=== PATIENT | male | born 1995 | race African-American/Black ===

== ENCOUNTER 2018-07-20 16:20 | Emergency (ER) | payer OTHER ==
[~2018-07-20] VITALS: Ht 180.3 cm; Wt 90.7 kg
[~2018-07-20 16:20] MED LIST: albuterol inh
[2018-07-20 16:40] VITALS: BP 152/81
[2018-07-20] MEDS ORDERED: HYDROcodone/APAP 5/325MG 1 TAB TABLET PO ONE ×2 (17:15→20:15)
--- NOTE | 2018-07-20 18:04 | RAD ---
HAND LEFT 3V History: welding accident/ foreign body in distal phalanx of the third digit Comparison: None. Findings: 3 views of the left hand are submitted. There is a curvilinear foreign body in the distal third phalanx in the soft tissues in the volar aspect, does not course into the bone. Impression: 1. There is a soft tissue foreign body in the distal third phalanx. Electronically signed by: Brain Briones MD (07/20/2018 6:00 PM) [facility]
[2018-07-20] MEDS ORDERED: LIDOCAINE WITH 8.4% SOD BICARB 3 ML DISP.SYRIN. INJ ONE (18:45)
[2018-07-20] MEDS ORDERED: IBUP-1060 PO (20:02)
[2018-07-20] MEDS ORDERED: CEPH-264 PO (20:02)
[2018-07-20] MEDS ORDERED: SULF1TAB24 PO (20:02)
--- NOTE | 2018-07-20 20:03 | PHYS DOC ---
Past Medical History Past Medical History: Asthma, Bronchitis Past Surgical History: Other Additional Past Surgical Histo: L knee sx, L ankle Alcohol Use: None Drug Use: Marijuana Social History Narrative: pt denies Adult General Chief Complaint Chief Complaint: FOREIGN BODY HPI HPI Patient is a 23 year old male who [facility] with [facility] and was working at his job as a spot welder line. A welding wire got stuck into his left third distal finger. Patient states his last tetanus shot was in 2016. Patient states his only history is asthma and he has no known drug allergies. Review of Systems Review of Systems Constitutional: Denies fever or chills [] Eyes: Denies change in visual acuity, redness, or eye pain [] HENT: Denies nasal congestion or sore throat [] Respiratory: Denies cough or shortness of breath [] Cardiovascular: No additional information not addressed in HPI [] GI: Denies abdominal pain, nausea, vomiting, bloody stools or diarrhea [] : Denies dysuria or hematuria [] Musculoskeletal: Foreign body in left third distal finger. Denies back pain or joint pain [] Integument: Denies rash or skin lesions [] Neurologic: Denies headache, focal weakness or sensory changes [] Endocrine: Denies polyuria or polydipsia [] All other systems were reviewed and found to be within normal limits, except as documented in this note. Current Medications Current Medications Current Medications Medications (Trade) Dose Ordered Sig/Ryan Start Time Stop Time Status Last Admin Dose Admin Acetaminophen/ Hydrocodone Bitart (Lortab 5/325) 1 tab 1X ONCE 07/20/18 20:15 07/20/18 20:16 DC 07/20/18 20:15 1 TAB Lidocaine/Sodium Bicarbonate (Buffered Lidocaine 1%) 6 ml 1X ONCE 07/20/18 18:45 07/20/18 18:46 DC 07/20/18 19:01 6 ML Allergies Allergies Allergies Coded Allergies Type Severity Reaction Last Updated Verified No Known Drug Allergies 05/15/14 No Physical Exam Physical Exam Constitutional: Well developed, well nourished, no acute distress, non-toxic appearance. [] HENT: Normocephalic, atraumatic, bilateral external ears normal, oropharynx moist, no oral exudates, nose normal. [] Eyes: PERRLA, EOMI, conjunctiva normal, no discharge. [] Neck: Normal range of motion, no tenderness, supple, no stridor. [] Cardiovascular:Heart rate regular rhythm, no murmur [] Lungs & Thorax: Bilateral breath sounds clear to auscultation [] Abdomen: Bowel sounds normal, soft, no tenderness, no masses, no pulsatile masses. [] Skin: Warm, dry, no erythema, no rash. [] Back: No tenderness, no CVA tenderness. [] Extremities: One centimeter foreign body metal wire stuck in left third distal finger. No tenderness, no cyanosis, no clubbing, ROM intact, no edema. [] Neurologic: Alert and oriented X 3, normal motor function, normal sensory function, no focal deficits noted. [] Psychologic: Affect normal, judgement normal, mood normal. [] Current Patient Data Vital Signs Vital Signs Date Time Temp Pulse Resp B/P (MAP) Pulse Ox O2 Delivery O2 Flow Rate FiO2 07/20/18 20:15 18 99 Room Air 07/20/18 16:40 98.2 82 152/81 (104) 98.2 EKG EKG [] Radiology/Procedures Radiology/Procedures [] Impressions: [facility] [address] [place] [address] IMAGING REPORT Signed PATIENT: BRIGHT MARTI ACCOUNT: [id number] : 1995 LOCATION: ER AGE: 23 SEX: M EXAM STATUS: REG ER ORD. PHYSICIAN: LISSETH PADILLA APRN REASON: welding accident/ foreign body PROCEDURE: HAND LEFT 3V HAND LEFT 3V History: welding accident/ foreign body in distal phalanx of the third digit Comparison: None. Findings: 3 views of the left hand are submitted. There is a curvilinear foreign body in the distal third phalanx in the soft tissues in the volar aspect, does not course into the bone. Impression: 1. There is a soft tissue foreign body in the distal third phalanx. Electronically signed by: Shirley Bates MD (07/20/2018 6:00 PM) [facility] DICTATED and SIGNED BY: SHIRLEY BATES MD DATE: 07/20/18 8826 Course & Med Decision Making Course & Med Decision Making Patient is a 23 year old male who presents with is [facility] and was working at his job as a spot welder line. A welding wire got stuck into his left third distal finger. Patient states his last tetanus shot was in 2015. Patient states his only history is asthma and he has no known drug allergies. Alert and oriented. Skin pink warm and dry. There is no bleeding or drainage. Pedal pulse present. There is no swelling in that affected hand or finger. The welding wire is sticking about 2 mm out of the skin. Patient can still bend his finger at all joints and there is no joint deformity or laxity. There is no deformity to the finger. Nailbed is intact. Digital block is performed with lidocaine and the area around the foreign body is also numbed up. Patient is given one [place] for pain. X-ray shows There is a soft tissue foreign body in the distal third phalanx. Foreign body is removed and finger is soaked in saline and Betadine and rinsed thoroughly. Patient tolerated well. The foreign body was a metal piece with a hook on the and that was approximately 1 cm in length. Patient is given a prescription for both Bactrim and Keflex and a prescription for Motrin. Patient is to follow-up here in 48 hours for a wound check. Patient cannot have narcotics at [facility] where he was placed in patient states that he is sure that ibuprofen will be fine. Patient is stable and in no distress. Dragon Disclaimer Dragon Disclaimer This electronic medical record was generated, in whole or in part, using a voice recognition dictation system. Departure Departure Impression: Primary Impression: Foreign body (FB) in soft tissue Disposition: 01 HOME, SELF-CARE Condition: STABLE Referrals: UNKNOWN PCP NAME (PCP) Patient Instructions: Foreign Body Additional Instructions: Take medications as prescribed. Come back in 48 hours for a wound check. Keep area clean and dry and covered especially when at work. You can also take ibuprofen and Tylenol for pain. Scripts Ibuprofen (IBUPROFEN) 800 Mg Tablet 800 MG PO PRN Q8HRS PRN for INFLAMMATION, #30 TAB Prov: LISSETH PADILLA APRN 07/20/18 Cephalexin (KEFLEX) 500 Mg Capsule 500 MG PO QID for 7 Days, #28 CAP Prov: BAFLISSETH WOODS APRN 07/20/18 Sulfamethoxazole/Trimethoprim (BACTRIM DS TABLET) 1 Each Tablet 1 TAB PO BID, #20 TAB Prov: LISSETH PADILLA APRN 07/20/18 LISSETH PADILLA APRN Jul 20, 2018 20:03
== END 2018-07-20 20:22 | disposition home or self-care (01) ==
LOC: EEVIPCON 16:20 → ER 16:20
DX: S60.453A Superficial foreign body of left middle finger, initial encounter (principal); J45.909 Unspecified asthma, uncomplicated; W45.8XXA Other foreign body or object entering through skin, initial encounter; Y93.89 Activity, other specified; Y92.69 Other specified industrial and construction area as the place of occurrence of the external cause; Y99.0 Civilian activity done for income or pay
CPT/HCPCS: 64450; 73130; 99283; 99284-25